=== PATIENT | female | born 1985 | race Caucasian/White ===

== ENCOUNTER 2021-12-16 16:35 | Outpatient (CLI) | payer OTHER ==
--- NOTE | 2021-12-16 17:14 | XRAY Report ---
PROCEDURE: Ankle 3 View LT INDICATIONS: L ANKLE PX TECHNIQUE: 3 views of the ankle were acquired. COMPARISON: None FINDINGS: Bones: No fractures or dislocations. Ankle mortise is normally aligned. Degenerative change in the midfoot. No suspicious bony lesions. Possible pes planus. Soft tissues: Swelling at the ankle. Possible trace tibiotalar joint effusion. Achilles tendon appe ars normal. IMPRESSION: No fracture demonstrated. Ankle swelling. Degenerative change in the mid foot. Possible pes planus. Foot radiographs may be helpful for further evaluation. Reviewed by: Emory Pugh MD on 12/16/2021 4:13 PM [facility] Approved by: Emory Pugh MD on 12/16/2021 4:13 PM [facility] Station ID: [id number]
[2021-12-16 20:41] LABS: BASOPHILS # (AUTO) 0.1 10^3/uL (0.0-0.1); EOSINOPHILS # (AUTO) 0.2 10^3/uL (0.0-0.7); EOSINOPHILS % (AUTO) 2.5 %; HCT - HEMATOCRIT 39.9 % (37.0-47.0); HGB - HEMOGLOBIN 12.7 g/dL (12.0-16.0); LYMPHOCYTES # (AUTO) 2.2 10^3/uL (1.5-3.5); LYMPHOCYTES % (AUTO) 27.3 %; MEAN CORPUSCULAR HGB CONC 31.8 g/dL (32.0-36.0); MEAN CORPUSCULAR VOLUME 94.3 fL (81.0-99.0); MEAN PLATELET VOLUME 10.1 fL (7.9-10.8); MONOCYTES # (AUTO) 0.5 10^3/uL (0.0-1.0); MONOCYTES % (AUTO) 6.8 %; NEUTROPHILS # (AUTO) 4.9 10^3/uL (1.5-6.6); NEUTROPHILS % (AUTO) 62.1 %; PLT - PLATELET COUNT 471 10^3/uL (130-450); RED BLOOD COUNT 4.23 10^6/uL (4.20-5.40)
[2021-12-16 20:54] LABS: RHEUMATOID FACTOR NEGATIVE (Negative)
[2021-12-18 18:07] LABS: ANTI-DNA (DS) AB QN <1 IU/mL (0-9); CENTROMERE B ANTIBODIES <0.2 AI (0.0-0.9); CHROMATIN ANTIBODIES <0.2 AI (0.0-0.9); JO-1 AB <0.2 AI (0.0-0.9); RIBOSOMAL P ANTIBODIES <0.2 AI (0.0-0.9); RNP ANTIBODIES <0.2 AI (0.0-0.9); SCLERODERMA-70 ANTIBODIES <0.2 AI (0.0-0.9); SJOGREN'S ANTI-SS-A <0.2 AI (0.0-0.9); SJOGREN'S ANTI-SS-B <0.2 AI (0.0-0.9); SMITH ANTIBODIES <0.2 AI (0.0-0.9); SMITH/RNP ANTIBODIES <0.2 AI (0.0-0.9)
[2021-12-19 17:08] LABS: CYCLIC CITRULLINATED PEP IGG/A 4 units (0-19)
== END 2021-12-16 23:59 | disposition home or self-care (01) ==
LOC: DI.N 16:35
PROVIDERS: ATTEND Family Medicine
DX: M19.072 Primary osteoarthritis, left ankle and foot (principal); M25.472 Effusion, left ankle
CPT/HCPCS: 36415; 83516; 85025; 85651; 86038; 86140; 86200; 86225; 86235; 86430